=== PATIENT | male | born 1975 | race Hispanic/Latino ===

== ENCOUNTER → 2019-08-13 | Day surgery (SDC) | payer OTHER ==
[2019-08-06 16:40] LABS: BASOPHILS # (AUTO) 0.1 (0.0-0.1); BASOPHILS % 1.3 % (0.0-1.0); EOSINOPHILS # (AUTO) 0.3 (0.0-0.4); EOSINOPHILS % 3.6 % (0.0-6.0); HEMATOCRIT 49.6 % (38.2-49.6); LYMPHOCYTES % 26.5 % (18.0-39.1); MEAN CORPUSCULAR HGB CONC 34.3 g/dL (31-35); MEAN CORPUSCULAR VOLUME 90.5 fL (81-99); MONOCYTES # (AUTO) 0.7 (0.2-0.8); MONOCYTES % 9.4 % (4.4-11.3); NEUTROPHILS # (AUTO) 4.4 (2.1-6.9); NEUTROPHILS % 58.7 % (38.7-80.0); PLATELET COUNT 200 x10e3/uL (140-360); RED BLOOD COUNT 5.48 x10e6/uL (4.3-5.7); RED CELL DISTRIBUTION WIDTH 12.8 % (11.7-14.4)
[~2019-08-13] MED LIST: BUPIVACAINE 0.25%/EPI 30ML SDV INJ ONE; DEXAMETHASONE SOD PHOS INJ 4 MG/ML VIAL ONE; FENTANYL CITRATE/PF 100MCG/2 ML INJ ONE; GLYCOPYRROLATE INJ 1MG/ 5 ML SYR ONE; HYDROMORPHONE 1MG/1ML INJ ONE; IBUPROFEN 800MG/ 250ML 250 ML IV ONE; LIDOCAINE HCL 2% LOCAL INJ 5 ML SDV VIAL INJ ONE; MIDAZOLAM HCL 2 MG/2 ML VIAL ONE; MILK OF MA2400 MG/10 PO; NEOSTIGMINE 5 MG/5ML SYR ONE; ONDANSETRON HCL INJ 2MG/ML 2ML 2 MG/ML VIAL ONE; PROPOFOL IV EMULSION 10 MG/ML 20 ML VIAL ONE; ROCURONIUM BROMIDE 10 MG/ML 5ML VIAL ONE; SEVOFLURANE INHAL SOLN 250 ML PEN BTL ONE
[2019-08-13 07:19] LABS: ANION GAP 12.8 mmol/L (8-16); BLOOD UREA NITROGEN 12 mg/dL (7-26); BUN/CREATININE RATIO 15 (6-25); CALCIUM 9.5 mg/dL (8.4-10.2); CARBON DIOXIDE 24 mmol/L (22-29); CHLORIDE 104 mmol/L (98-107); EST GLOMERULAR FILTRATION RATE > 60 ML/MIN (60-); GLUCOSE 107 mg/dL (74-118); POTASSIUM 3.8 mmol/L (3.5-5.1); SODIUM 137 mmol/L (136-145)
[2019-08-13 10:15] VITALS: BP 139/96
--- NOTE | 2019-08-13 11:09 | Operative Report ---
DATE OF PROCEDURE: 08/13/2019 SURGEON: Trent Nair MD PREOPERATIVE DIAGNOSIS: Incarcerated umbilical hernia. POSTOPERATIVE DIAGNOSES: Incarcerated umbilical hernia and supraumbilical hernia. OPERATIONS PERFORMED: Repair of incarcerated umbilical and supraumbilical hernias. ANESTHESIA: General. RAG COLLECTOR: KEN Meraz. ESTIMATED BLOOD LOSS: Minimal. COMPLICATIONS: None. DESCRIPTION OF PROCEDURE: With the patient lying in bed in the supine position under good general anesthesia, the abdomen was prepped with Betadine solution and draped in the usual manner. A semilunar subumbilical incision was made. It was carried down through the subcutaneous tissue down to the fascia. The hernia sac was then identified and encircled all the way around. The umbilicus was then detached from the hernia sac and the excess of the hernia sac was resected and the contents were reduced back to the intraabdominal cavity. Exploration of supraumbilical space at this point revealed the presence of a small defect in the supraumbilical area. The protruding properitoneal fat was then resected and the small defect was closed with interrupted sutures of 0 Ethibond. A medium-sized Ventralex patch was then placed through the defect into the intraabdominal cavity and then anchored all the way around using interrupted sutures of 0 Ethibond. The midline defect was then closed transversely with interrupted sutures of 0 Ethibond anchoring the mesh and the fascia on the way out. The whole area was then thoroughly irrigated. Perfect hemostasis was ascertained. All layers were infiltrated on the way out with solution of 0.25% Marcaine. The umbilicus was then tacked back down to the midline fascia with 3-0 Vicryl. The subcutaneous tissue was approximated with 3-0 Vicryl and the skin was closed with interrupted vertical mattress sutures of 3-0 silk. A dressing was applied. The sponge, lap, and needle count was correct. The patient tolerated the procedure well and returned to the recovery room in stable condition. MD LEOLA RandallR/MODL /[id number]
== END | disposition home or self-care (01) ==
LOC: OR 06:28
PROVIDERS: ATTEND Surgery
DX: K42.0 Umbilical hernia with obstruction, without gangrene (principal); Z01.810 Encounter for preprocedural cardiovascular examination; Z01.812 Encounter for preprocedural laboratory examination; K21.9 Gastro-esophageal reflux disease without esophagitis; F17.210 Nicotine dependence, cigarettes, uncomplicated
CPT/HCPCS: 36415; 49587; 80048; 85025; 93005; C1781; J1100; J1170; J2001; J2250; J2405; J2704; J3010; J3490

== ENCOUNTER 2023-02-27 15:24 | Emergency (ER) | payer SELFPAY ==
[~2023-02-27] VITALS: Ht 177.8 cm; Wt 111.1 kg
[~2023-02-27 15:24] MED LIST changes: -BUPIVACAINE 0.25%/EPI 30ML SDV INJ ONE; +CEPHALEXIN500 MG PO; -DEXAMETHASONE SOD PHOS INJ 4 MG/ML VIAL ONE; -FENTANYL CITRATE/PF 100MCG/2 ML INJ ONE; -GLYCOPYRROLATE INJ 1MG/ 5 ML SYR ONE; -HYDROMORPHONE 1MG/1ML INJ ONE; -IBUPROFEN 800MG/ 250ML 250 ML IV ONE; -LIDOCAINE HCL 2% LOCAL INJ 5 ML SDV VIAL INJ ONE; -MIDAZOLAM HCL 2 MG/2 ML VIAL ONE; -NEOSTIGMINE 5 MG/5ML SYR ONE; -ONDANSETRON HCL INJ 2MG/ML 2ML 2 MG/ML VIAL ONE; -PROPOFOL IV EMULSION 10 MG/ML 20 ML VIAL ONE; -ROCURONIUM BROMIDE 10 MG/ML 5ML VIAL ONE; -SEVOFLURANE INHAL SOLN 250 ML PEN BTL ONE
[2023-02-27 16:25] VITALS: O2SAT 100
[2023-02-27] MEDS ORDERED: BACTRIM DS TAB1 EACH PO (16:49)
[2023-02-27] MEDS ORDERED: MUPIROCIN22 GM TOP (16:49)
== END 2023-02-27 16:45 | disposition home or self-care (01) ==
LOC: ER 15:27
DX: L03.012 Cellulitis of left finger (principal); I10 Essential (primary) hypertension; F17.210 Nicotine dependence, cigarettes, uncomplicated
CPT/HCPCS: 99283

== ENCOUNTER 2023-08-02 15:27 | Emergency (ER) | payer OTHER ==
[~2023-08-02] VITALS: Ht 177.8 cm; Wt 111.1 kg
[~2023-08-02 15:27] MED LIST changes: +BACTRIM DS TAB1 EACH PO; +MUPIROCIN22 GM TOP
[2023-08-02 15:30] VITALS: O2SAT 100
[2023-08-02] MEDS ORDERED: CEPHALEXIN500 MG PO (16:00)
[2023-08-02] MEDS ORDERED: BACITRACIN ZINC 0.9GM TP ONE (16:15)
== END 2023-08-02 16:17 | disposition home or self-care (01) ==
LOC: ER 16:03
DX: L03.011 Cellulitis of right finger (principal); I10 Essential (primary) hypertension
CPT/HCPCS: 99283